=== PATIENT | female | born 1945 ===

== ENCOUNTER 2017-09-06 05:31 | Outpatient (CLI) | payer MEDICARE, OTHER ==
[~2017-09-06] VITALS: Ht 160 cm; Wt 88.5 kg
[2017-09-06] MEDS ORDERED: PYRI25TA3 PO (13:52)
[2017-09-06] MEDS ORDERED: MULT-141 PO (13:52)
[2017-09-06] MEDS ORDERED: CYAN500T44 PO (13:52)
[2017-09-06] MEDS ORDERED: ASCO500C17 PO (13:52)
[2017-09-06] MEDS ORDERED: CYCL5.5D OU (13:52)
[2017-09-06] MEDS ORDERED: CALC-654 PO (13:52)
[2017-09-06] MEDS ORDERED: MAGN400T39 PO (13:52)
[2017-09-09] MEDS ORDERED: AMOX-355 PO (11:18)
[2017-09-09] MEDS ORDERED: PRD20T PO (11:18)
[2017-09-09] MEDS ORDERED: ACHD5005 PO (11:18)
== END 2017-09-06 14:34 ==
LOC: PREOP 05:31 → EDUNIT# 09:00 → PREOP 14:34
PROVIDERS: ATTEND Otolaryngology Otolaryngology/Facial Plastic Surgery
DX: Z01.818 Encounter for other preprocedural examination (principal)

== ENCOUNTER 2017-09-29 16:45 | Outpatient (CLI) | payer MEDICARE, OTHER ==
[~2017-09-29 16:45] MED LIST: ACHD5005 PO; AMOX-355 PO; ASCO500C17 PO; CALC-654 PO; CYAN500T44 PO; CYCL5.5D OU; MAGN400T39 PO; MULT-141 PO; PRD20T PO; PYRI25TA3 PO
== END 2017-09-29 16:56 | disposition home or self-care (01) ==
LOC: SLEEP 16:45
PROVIDERS: ATTEND Nurse Practitioner
DX: G47.33 Obstructive sleep apnea (adult) (pediatric) (principal)